=== PATIENT | female | born 1995 | race Caucasian/White ===

== ENCOUNTER 2016-06-23 11:25 | Emergency (ER) | payer OTHER | END 2016-06-23 12:35 | disposition left against medical advice (07) | LOC: ER1 11:25 | DX: G40.409 Other generalized epilepsy and epileptic syndromes, not intractable, without status epilepticus (principal); I10 Essential (primary) hypertension; F32.9 Major depressive disorder, single episode, unspecified; F41.9 Anxiety disorder, unspecified | CPT/HCPCS: 36415; 99285 ==

== ENCOUNTER → 2016-06-25 | Outpatient (CLI) | payer OTHER | LOC: EMI 13:00 | DX: M54.9 Dorsalgia, unspecified (principal); M51.27 Other intervertebral disc displacement, lumbosacral region | CPT/HCPCS: 72148 ==

== ENCOUNTER 2016-07-24 15:45 | Emergency (ER) | payer OTHER | END 2016-07-24 18:10 | disposition home or self-care (01) | LOC: ER1 15:45 | DX: M54.5 Low back pain (principal); G89.29 Other chronic pain; G40.909 Epilepsy, unspecified, not intractable, without status epilepticus; I10 Essential (primary) hypertension; Z79.1 Long term (current) use of non-steroidal anti-inflammatories (NSAID); Z79.899 Other long term (current) drug therapy | CPT/HCPCS: 99283 ==

== ENCOUNTER 2016-08-17 11:40 | Emergency (ER) | payer OTHER ==
[2016-08-17 13:11] LABS: HEMOGLOBIN 12.5 gm/dl (12.3-15.3); RED BLOOD COUNT 4.4 M/UL (4.00-5.10); WHITE BLOOD COUNT 6.7 K/UL (4.5-11.0)
[2016-08-17 13:28] LABS: BUN/CREATININE RATIO 15 (0-10)
== END 2016-08-17 16:23 | disposition home or self-care (01) ==
LOC: ER1 11:40
PROVIDERS: Emergency Medicine
DX: G40.409 Other generalized epilepsy and epileptic syndromes, not intractable, without status epilepticus (principal); Z79.899 Other long term (current) drug therapy
CPT/HCPCS: 36415; 72125; 72128; 72131; 80053; 81001; 84703; 85025; 93005; 96374; 96375; 99285; J2270; J2405

== ENCOUNTER → 2020-04-04 | Outpatient (CLI) | payer OTHER ==
[~2020-04-04] MED LIST: AIMOVIG AU70 MG/1 M1 SQ; AUGMENTIN 875-1 EACH PO; BOTOX200 UNIT INJ; BUSPAR 5MG TABLE5 MG PO; CARAFATE1 GM PO; CELEXA40 MG PO; DECADRON6 MG PO; FEOSOL325 MG PO; FIORICET TAB1 EA PO; FLEXERIL 10 MG10 MG PO; FLONASE 0.05% N16 GM; HYDROCHLOROTHIA25 MG PO; IBUPROFEN600 MG PO; K-DUR TAB 20 M20 MEQ PO; KEPPRA1000 MG PO; MACROBID 100 M100 MG PO; NAPROSYN500 MG PO; NORCO 5-325 TA1 EACH PO; OFLOXACIN5 M1 EARLF; OMNICEF 300 MG300 MG PO; PRINIVIL10 MG PO; PROBIOTIC1 EAC3 PO; PROMETHEGAN25 MG PR; PROTONIX40 MG PO; TESSALON PERLE100 MG PO; TOPAMAX100 MG PO; TOPAMAX200 MG PO; ZANTAC150 MG PO; ZOFRAN ODT 4 MG4 MG SL; ZOFRAN4 MG PO
== END ==
LOC: EMI 09:45
DX: S06.0X9A Concussion with loss of consciousness of unspecified duration, initial encounter (principal); R42 Dizziness and giddiness; J32.0 Chronic maxillary sinusitis; W01.10XA Fall on same level from slipping, tripping and stumbling with subsequent striking against unspecified object, initial encounter
CPT/HCPCS: 70551

== ENCOUNTER 2020-05-12 20:32 | Emergency (ER) | payer OTHER ==
[~2020-05-12 20:32] MED LIST changes: -DECADRON6 MG PO; -OMNICEF 300 MG300 MG PO; -PROMETHEGAN25 MG PR; -TESSALON PERLE100 MG PO
[2020-05-13 00:20] LABS: HEMOGLOBIN 14.8 gm/dl (12.3-15.3); RED BLOOD COUNT 4.86 M/UL (4.00-5.10)
[2020-05-13 00:43] LABS: BUN/CREATININE RATIO 16 (0-10)
[2020-05-13] MEDS ORDERED: K-DUR TAB 20 M20 MEQ PO (04:34)
[2020-05-13] MEDS ORDERED: OMNICEF 300 MG300 MG PO (04:34)
[2020-05-13] MEDS ORDERED: DECADRON6 MG PO (04:34)
== END 2020-05-13 04:01 | disposition home or self-care (01) ==
LOC: ER1 20:32
PROVIDERS: Emergency Medicine
DX: U07.1 COVID-19 (principal); J12.82 Pneumonia due to coronavirus disease 2019; E11.9 Type 2 diabetes mellitus without complications; E87.6 Hypokalemia; J45.909 Unspecified asthma, uncomplicated; I10 Essential (primary) hypertension; Z88.0 Allergy status to penicillin
CPT/HCPCS: 71045; 80053; 81001; 82550; 82553; 83605; 83735; 83874; 84439; 84443; 84484; 84703; 85025; 85379; 87040; 87086; 93005; 94664; 96365; 96375; 99285; Q9967

== ENCOUNTER 2020-05-16 14:07 | Emergency (ER) | payer OTHER ==
[~2020-05-16 14:07] MED LIST changes: +DECADRON6 MG PO; +OMNICEF 300 MG300 MG PO
[2020-05-16 15:55] LABS: HEMOGLOBIN 14.9 gm/dl (12.3-15.3); RED BLOOD COUNT 4.93 M/UL (4.00-5.10); WHITE BLOOD COUNT 4.3 K/UL (4.5-11.0)
[2020-05-16 16:47] LABS: BUN/CREATININE RATIO 9 (0-10)
[2020-05-16] MEDS ORDERED: PROMETHEGAN25 MG PR (18:28)
[2020-05-16] MEDS ORDERED: K-DUR TAB 20 M20 MEQ PO (18:28)
[2020-05-16] MEDS ORDERED: TESSALON PERLE100 MG PO (18:28)
== END 2020-05-16 18:41 | disposition home or self-care (01) ==
LOC: ER1 14:07
PROVIDERS: Nurse Practitioner
DX: U07.1 COVID-19 (principal); J12.82 Pneumonia due to coronavirus disease 2019; E87.6 Hypokalemia; J45.909 Unspecified asthma, uncomplicated; I10 Essential (primary) hypertension; Z88.0 Allergy status to penicillin
CPT/HCPCS: 80053; 82550; 82553; 83605; 83874; 84484; 85025; 96372; 96374; 96375; 99285; J0500; J1885; J2405; J7040

== ENCOUNTER → 2020-06-28 | Outpatient (CLI) | payer OTHER ==
[~2020-06-28] MED LIST changes: +PROMETHEGAN25 MG PR; +TESSALON PERLE100 MG PO
== END ==
LOC: KOH-I 08:00
DX: R10.11 Right upper quadrant pain (principal)
CPT/HCPCS: 76705

== ENCOUNTER 2020-08-31 12:10 | Emergency (ER) | payer OTHER ==
[2020-08-31 13:35] LABS: RED BLOOD COUNT 5.25 M/UL (4.00-5.10)
[2020-08-31 14:00] LABS: BUN/CREATININE RATIO 12 (0-10)
[2020-08-31] MEDS ORDERED: OMNICEF 300 MG300 MG PO (21:52)
== END 2020-08-31 15:26 | disposition home or self-care (01) ==
LOC: ER1 12:10
PROVIDERS: Emergency Medicine
DX: R56.9 Unspecified convulsions (principal); R51.9 Headache, unspecified; I10 Essential (primary) hypertension
CPT/HCPCS: 70450; 71045; 80053; 81001; 82962; 85025; 87086; 93005; 99284

== ENCOUNTER → 2020-10-24 | Outpatient (CLI) | payer OTHER | LOC: KOH-I 13:10 | DX: M54.2 Cervicalgia (principal); M54.5 Low back pain | CPT/HCPCS: 72040; 72100 ==

== ENCOUNTER 2020-10-26 18:53 | Emergency (ER) | payer OTHER ==
[2020-10-26] MEDS ORDERED: OMNICEF 300 MG300 MG PO (22:01)
== END 2020-10-26 22:17 | disposition home or self-care (01) ==
LOC: ER1 18:53
DX: N39.0 Urinary tract infection, site not specified (principal); R05 Cough; Z20.822 Contact with and (suspected) exposure to COVID-19; J45.909 Unspecified asthma, uncomplicated; I10 Essential (primary) hypertension; G40.909 Epilepsy, unspecified, not intractable, without status epilepticus; Z79.899 Other long term (current) drug therapy
CPT/HCPCS: 71045; 81001; 84703; 87081; 87880; 99284; U0003

== ENCOUNTER → 2020-12-05 | Outpatient (CLI) | payer OTHER ==
[~2020-12-05] MED LIST changes: +AZELASTINE137 MCG/0.; +BREO ELLIPTA 21 EACH INH; +BUSPIRONE HCL15 MG PO; +CATAPRES 0.1MG0.1 MG PO; +CITALOPRAM HBR40 MG PO; +ELAVIL 50 MG TA50 MG PO; +FOLIC ACID 1 MG1 MG PO; +KLONOPIN TAB 00.5 MG PO; +LEVETIRACETAM1000 MG PO; +SULFAMETHOXAZO1 EACH PO; +TOPIRAMATE200 MG PO; +VALTOCO20 MG/0.2
== END ==
LOC: LAB 07:02
DX: E22.1 Hyperprolactinemia (principal)
CPT/HCPCS: 36415; 84146

== ENCOUNTER 2020-12-10 06:22 | Observation (INO) | payer OTHER ==
[~2020-12-10] VITALS: Ht 165.1 cm; Wt 124.7 kg
[~2020-12-10 06:22] MED LIST changes: -AZELASTINE137 MCG/0.; -BREO ELLIPTA 21 EACH INH; -BUSPIRONE HCL15 MG PO; -CATAPRES 0.1MG0.1 MG PO; -CITALOPRAM HBR40 MG PO; -ELAVIL 50 MG TA50 MG PO; -FOLIC ACID 1 MG1 MG PO; -KLONOPIN TAB 00.5 MG PO; -LEVETIRACETAM1000 MG PO; -SULFAMETHOXAZO1 EACH PO; -TOPIRAMATE200 MG PO; -VALTOCO20 MG/0.2
[2020-12-10 06:57] LABS: HEMOGLOBIN 14.5 gm/dl (12.3-15.3); RED BLOOD COUNT 4.7 M/UL (4.00-5.10); WHITE BLOOD COUNT 9.1 K/UL (4.5-11.0)
[2020-12-10 07:29] LABS: BUN/CREATININE RATIO 12 (0-10)
[2020-12-11] MEDS ORDERED: ELAVIL 50 MG TA50 MG PO (22:39)
[2020-12-11] MEDS ORDERED: KLONOPIN TAB 00.5 MG PO (22:40)
[2020-12-11] MEDS ORDERED: BREO ELLIPTA 21 EACH INH (22:40)
[2020-12-11] MEDS ORDERED: FLONASE 0.05% N16 GM (22:40)
[2020-12-11] MEDS ORDERED: AZELASTINE137 MCG/0. (22:40)
[2020-12-11] MEDS ORDERED: LEVETIRACETAM1000 MG PO (22:41)
[2020-12-11] MEDS ORDERED: SULFAMETHOXAZO1 EACH PO (22:41)
[2020-12-11] MEDS ORDERED: BOTOX200 UNIT INJ (22:42)
[2020-12-11] MEDS ORDERED: HYDROCHLOROTHIA25 MG PO (22:43)
[2020-12-11] MEDS ORDERED: FOLIC ACID 1 MG1 MG PO (22:43)
[2020-12-11] MEDS ORDERED: TOPIRAMATE200 MG PO (22:43)
[2020-12-11] MEDS ORDERED: CITALOPRAM HBR40 MG PO (22:45)
[2020-12-11] MEDS ORDERED: BUSPIRONE HCL15 MG PO (22:45)
[2020-12-11] MEDS ORDERED: VALTOCO20 MG/0.2 (22:45)
[2020-12-11] MEDS ORDERED: CATAPRES 0.1MG0.1 MG PO (22:46)
--- NOTE | 2020-12-12 | NUR ---
SPOKE WITH ELECTRIC STOP INSTALLER (LAVERN) REGARDING THE PT'S SIGNIFICANT OTHER STAYING THE NIGHT WITH PT. PT AND SIGNIFICANT OTHER STATING THAT WHEN THE PT BECOMES STRESSED SHE HAS A SEIZURE. SIGNIFICANT OTHER PROVIDES COMFORT FOR PT. OKAY FOR SIGNIFICANT OTHER TO STAY UNTIL 7 AM PER HOUSE.
[2020-12-12 06:25] LABS: HEMOGLOBIN 12.6 gm/dl (12.3-15.3); WHITE BLOOD COUNT 8.4 K/UL (4.5-11.0)
[2020-12-12 06:55] LABS: BUN/CREATININE RATIO 12 (0-10)
[2020-12-12 07:06] LABS: RED BLOOD COUNT 4.19 M/UL (4.00-5.10)
--- NOTE | 2020-12-13 06:35 | NUR ---
CALLED REPORT TO [facility] ([facility] ICU) TO NURSE TAWANDA.
--- NOTE | 2020-12-13 07:55 | NUR ---
FLIGHT REPORT CALLED TO MICHELLE AT [phone], AGREED TO TAKE PATIENT AT WEIGHT OF 275.
== END 2020-12-13 08:49 | disposition short-term general hospital (02) ==
LOC: ER1 06:22 → CDU 12-11 21:28 → MED SURG 4 12-11 21:28
PROVIDERS: Internal Medicine; Physician Assistant; ADMIT Internal Medicine
DX: G40.919 Epilepsy, unspecified, intractable, without status epilepticus (principal); I10 Essential (primary) hypertension; E87.6 Hypokalemia; Z20.822 Contact with and (suspected) exposure to COVID-19; F41.9 Anxiety disorder, unspecified; E86.0 Dehydration; R79.89 Other specified abnormal findings of blood chemistry; Z96.82 Presence of neurostimulator; R00.0 Tachycardia, unspecified; M47.816 Spondylosis without myelopathy or radiculopathy, lumbar region; Z23 Encounter for immunization
CPT/HCPCS: 36415; 72070; 72100; 80048; 80053; 80201; 81001; 84703; 85025; 87086; 93005; 96374; 96375; 99285; G0378; J1650; J1885; J1953; J2060; U0002

== ENCOUNTER → 2021-01-24 | Outpatient (CLI) | payer MEDICAID ==
[~2021-01-24] MED LIST changes: +AZELASTINE137 MCG/0.; +BREO ELLIPTA 21 EACH INH; +BUSPIRONE HCL15 MG PO; +CATAPRES 0.1MG0.1 MG PO; +CITALOPRAM HBR40 MG PO; +ELAVIL 50 MG TA50 MG PO; +FOLIC ACID 1 MG1 MG PO; +KLONOPIN TAB 00.5 MG PO; +LEVETIRACETAM1000 MG PO; +SULFAMETHOXAZO1 EACH PO; +TOPIRAMATE200 MG PO; +VALTOCO20 MG/0.2
== END ==
LOC: KOH-I 15:00
DX: J01.81 Other acute recurrent sinusitis (principal)
CPT/HCPCS: 70486

== ENCOUNTER 2021-02-24 13:48 | Emergency (ER) | payer OTHER ==
[2021-02-24 14:51] LABS: HEMOGLOBIN 14.1 gm/dl (12.3-15.3); RED BLOOD COUNT 4.61 M/UL (4.00-5.10); WHITE BLOOD COUNT 7.9 K/UL (4.5-11.0)
[2021-02-24 15:13] LABS: BUN/CREATININE RATIO 14 (0-10)
[2021-02-24] MEDS ORDERED: IBUPROFEN600 MG PO (19:14)
== END 2021-02-24 19:15 | disposition home or self-care (01) ==
LOC: ER1 13:48
PROVIDERS: Physician Assistant Medical
DX: J02.9 Acute pharyngitis, unspecified (principal); R05.9 Cough, unspecified; R50.9 Fever, unspecified; R51.9 Headache, unspecified; I10 Essential (primary) hypertension; G40.909 Epilepsy, unspecified, not intractable, without status epilepticus; Z79.899 Other long term (current) drug therapy; Z20.822 Contact with and (suspected) exposure to COVID-19
CPT/HCPCS: 0240U; 71045; 80053; 85025; 99283

== ENCOUNTER 2021-03-07 13:24 | Emergency (ER) | payer OTHER ==
[2021-03-07 14:01] LABS: HEMOGLOBIN 14.6 gm/dl (12.3-15.3); RED BLOOD COUNT 4.82 M/UL (4.00-5.10); WHITE BLOOD COUNT 10.1 K/UL (4.5-11.0)
[2021-03-07 14:28] LABS: BUN/CREATININE RATIO 15 (0-10)
== END 2021-03-07 15:18 | disposition home or self-care (01) ==
LOC: ER1 13:24
PROVIDERS: Preventive Medicine Occupational Medicine
DX: G40.909 Epilepsy, unspecified, not intractable, without status epilepticus (principal)
CPT/HCPCS: 71045; 80048; 85025; 96374; 96375; 99284; J1953; J2060

== ENCOUNTER → 2021-03-20 | Outpatient (CLI) | payer OTHER ==
[~2021-03-20] MED LIST changes: +BENZONATATE100 MG PO
== END ==
LOC: HEART 5 09:47
DX: R00.0 Tachycardia, unspecified (principal); I08.1 Rheumatic disorders of both mitral and tricuspid valves
CPT/HCPCS: 93242; 93306

== ENCOUNTER 2021-03-22 11:14 | Emergency (ER) | payer OTHER ==
[~2021-03-22 11:14] MED LIST changes: -BENZONATATE100 MG PO
[2021-03-22] MEDS ORDERED: BENZONATATE100 MG PO (14:38)
== END 2021-03-22 14:45 | disposition home or self-care (01) ==
LOC: ER1 11:14
DX: J39.9 Disease of upper respiratory tract, unspecified (principal); B97.89 Other viral agents as the cause of diseases classified elsewhere; Z20.822 Contact with and (suspected) exposure to COVID-19; I10 Essential (primary) hypertension
CPT/HCPCS: 0240U; 99283

== ENCOUNTER 2021-04-04 20:35 | Inpatient (IN) | payer MEDICARE, OTHER, MEDICAID ==
[~2021-04-04] VITALS: Ht 172.7 cm; Wt 128.8 kg
[~2021-04-04 20:35] MED LIST changes: +BENZONATATE100 MG PO
[2021-04-04 21:07] LABS: HEMOGLOBIN 13.4 gm/dl (12.3-15.3); RED BLOOD COUNT 4.47 M/UL (4.00-5.10); WHITE BLOOD COUNT 8.8 K/UL (4.5-11.0)
[2021-04-04 21:28] LABS: BUN/CREATININE RATIO 16 (0-10)
--- NOTE | 2021-04-05 08:59 | NUR ---
0830 - DR COLEY (NEURO) ON FLOOR TO SEE PT. PT WITH SEIZURE LIKE ACTIVITY WITH MD AT BEDSIDE. MD SPOKE QUIETLY TO PT AND SEIZURE LIKE ACTIVITY STOPPED. NO OTHER NEW ORDERS NOTED
--- NOTE | 2021-04-05 17:25 | NUR ---
1500 PT WITH MULTIPLE SEIZURE ACTIVITY WITH ATIVAN GIVEN ORDERED. PT TACHYCARDIC, O2 SAT DROPPING. MD NOTIFIED WITH ORDERS TO TRANSFER TO ICU. AWAITING A BED AT THIS TIME. 1600 RESTING QUIETLY AT PRESENT. SPOUSE AT BEDSIDE. 1700 SEIZURE ACTIVITY NOTED. MEDS GIVEN ORDERED. CONTINUE TO WAIT ON ICU BED.
[2021-04-06 06:39] LABS: RED BLOOD COUNT 4.11 M/UL (4.00-5.10); WHITE BLOOD COUNT 9.2 K/UL (4.5-11.0)
[2021-04-06 07:05] LABS: BUN/CREATININE RATIO 16 (0-10)
[2021-04-07 04:48] LABS: HEMOGLOBIN 11.8 gm/dl (12.3-15.3); RED BLOOD COUNT 3.99 M/UL (4.00-5.10); WHITE BLOOD COUNT 8.4 K/UL (4.5-11.0)
[2021-04-07 05:07] LABS: BUN/CREATININE RATIO 11 (0-10)
--- NOTE | 2021-04-07 15:10 | NUR ---
PT ARRIVED TO UNIT FROM OBSERVATION, VSS, DROWSY BUT ALERT, WILL CONTINUE TO MONITOR
--- NOTE | 2021-04-07 15:40 | NUR ---
PT HAD A SEIZURE LASTING 7 MINUTES, BODY ROCKING MOTION, EYES ROLLED BACK IN HEAD, HEART RATE ELEVATED, O2 IN THE 70'S, 2MG ATIVAN GIVEN PER CENTRAL LINE, WILL CONT. TO MONITOR
[2021-04-08 08:26] LABS: HEMOGLOBIN 12.7 gm/dl (12.3-15.3); RED BLOOD COUNT 4.37 M/UL (4.00-5.10); WHITE BLOOD COUNT 8.6 K/UL (4.5-11.0)
[2021-04-08 09:03] LABS: BUN/CREATININE RATIO 12 (0-10)
== END 2021-04-08 16:15 | DRG 100 ==
LOC: ER1 20:35 → CDU 22:31 → CCU 22:31 → PROG CARE 04-07 15:15
PROVIDERS: Emergency Medicine; ADMIT Internal Medicine
PROC: 02HV33Z Insertion of Infusion Device into Superior Vena Cava, Percutaneous Approach (ICD-10-PCS; principal; 2021-04-05)
DX: G40.409 Other generalized epilepsy and epileptic syndromes, not intractable, without status epilepticus (principal); J18.9 Pneumonia, unspecified organism; J98.11 Atelectasis; Z68.41 Body mass index [BMI] 40.0-44.9, adult; E66.01 Morbid (severe) obesity due to excess calories; F17.200 Nicotine dependence, unspecified, uncomplicated; R09.02 Hypoxemia; Z20.822 Contact with and (suspected) exposure to COVID-19; I10 Essential (primary) hypertension; E78.5 Hyperlipidemia, unspecified; E87.70 Fluid overload, unspecified; F41.9 Anxiety disorder, unspecified; Z79.899 Other long term (current) drug therapy; Z98.890 Other specified postprocedural states; Z82.0 Family history of epilepsy and other diseases of the nervous system; Z79.52 Long term (current) use of systemic steroids
CPT/HCPCS: 36415; 36600; 71045; 80048; 80053; 82803; 83880; 84703; 85025; 85027; 94640; 94664; 94760; 96374; 96375; 96376; 99285; C1751; G0378; J1165; J1650; J1953; J2060; J3360; J7030; U0002

== ENCOUNTER 2021-05-16 07:20 | Emergency (ER) | payer MEDICAID ==
[2021-05-16 08:53] LABS: HEMOGLOBIN 12.5 gm/dl (12.3-15.3); RED BLOOD COUNT 4.27 M/UL (4.00-5.10); WHITE BLOOD COUNT 8.4 K/UL (4.5-11.0)
[2021-05-16 09:19] LABS: BUN/CREATININE RATIO 15 (0-10)
== END 2021-05-16 09:40 | disposition home or self-care (01) ==
LOC: ER1 07:20
PROVIDERS: Physician Assistant
DX: G40.909 Epilepsy, unspecified, not intractable, without status epilepticus (principal)
CPT/HCPCS: 71045; 72072; 80053; 82550; 82553; 84484; 85025; 96372; 99284; J1885

== ENCOUNTER 2021-06-09 20:23 | Emergency (ER) | payer OTHER ==
[2021-06-10 02:25] LABS: HEMOGLOBIN 12.6 gm/dl (12.3-15.3); RED BLOOD COUNT 4.44 M/UL (4.00-5.10); WHITE BLOOD COUNT 9.3 K/UL (4.5-11.0)
[2021-06-10 02:47] LABS: BUN/CREATININE RATIO 17 (0-10)
[2021-06-10] MEDS ORDERED: ZOFRAN 4 MG TAB4 MG PO (05:02)
== END 2021-06-10 05:12 | disposition home or self-care (01) ==
LOC: ER1 20:23
PROVIDERS: Physician Assistant Medical
DX: S06.0X0A Concussion without loss of consciousness, initial encounter (principal); G40.909 Epilepsy, unspecified, not intractable, without status epilepticus; R00.1 Bradycardia, unspecified; W06.XXXA Fall from bed, initial encounter
CPT/HCPCS: 70450; 71045; 80053; 81001; 82550; 82553; 84439; 84443; 84484; 84703; 85025; 93005; 99284

== ENCOUNTER 2021-06-15 15:47 | Emergency (ER) | payer OTHER ==
[~2021-06-15 15:47] MED LIST changes: +ZOFRAN 4 MG TAB4 MG PO
== END 2021-06-15 17:20 | disposition left against medical advice (07) ==
LOC: ER1 15:47
DX: Z53.21 Procedure and treatment not carried out due to patient leaving prior to being seen by health care provider (principal)
CPT/HCPCS: 93005